=== PATIENT | male | born 1945 | race Caucasian/White ===

== ENCOUNTER 2016-08-28 07:58 | Day surgery (SDC) | payer MEDICARE, OTHER ==
[~2016-08-28] VITALS: Ht 188 cm; Wt 146.1 kg
[2016-08-28] VITALS (9 sets, daily range): BP systolic 119–157; BP diastolic 73–82; PULSE 47–52; RESP 12–17; O2SAT 94–96
[~2016-08-28 07:58] MED LIST: ASPI-973 PO; Ampicillin 2,000 mg/50 mL NS Minibag Plus IV SCH; CARV6.252 PO; DEXTROSE 5% IV SCH; GENTAMICIN IV SCH; HCTZ PO; HYDR-4003 PO; LIP40 PO; LOSA100T29 PO; MEXI200C PO; TAMS0.4C98 PO
[2016-08-28] MEDS ORDERED: Dexamethasone 4 mg/mL Inj ONE (07:59)
[2016-08-28] MEDS ORDERED: Neostigmine 1 mg/mL 10 mL Inj ONE (07:59)
[2016-08-28] MEDS ORDERED: Ondansetron 2 mg/mL 2 mL Inj ONE (07:59)
[2016-08-28] MEDS ORDERED: EPHEDrine/NS 5 mg/mL 5 mL Syringe ONE (07:59)
[2016-08-28] MEDS ORDERED: fentaNYL-PF 50 mCg/mL 2 mL Inj ONE (07:59)
[2016-08-28] MEDS ORDERED: Propofol 10,000 mCg/mL 20 mL Inj ONE (07:59)
[2016-08-28] MEDS ORDERED: Glycopyrrolate 0.2 MG/ML 1mL Inj ONE (07:59)
[2016-08-28] MEDS ORDERED: Phenylephrine/NS 100 mCg/mL 10 mL Syringe IVPUSH ONE (07:59)
[2016-08-28] MEDS ORDERED: Lactated Ringer's 1,000 ML IV ONE (08:54)
[2016-08-28] MEDS ORDERED: Lactated Ringer's 1,000 ML IV SCH (11:24)
[2016-08-28] MEDS ORDERED: Lactated Ringer's 500 ML IV PRN (11:24)
--- NOTE | 2016-08-28 11:24 | PCM.HPANE ---
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) Medications Blood Thinner: Aspirin Hypertension Medication: Yes Home Meds Incl Beta Janneth: Yes (carvedilol) Date Beta Janneth Taken: Aug 28, 2016 Time Beta Janneth Taken: 0700 Reported Medications Hydrocodone-Acetaminophen 5-325 mg 1 Each Tablet1 Tablet PO Q4H PRN For Pain Ref 0 08/22/16 Aspirin 81 Mg [id number] Mg PO DAILY Ref 0 08/22/16 Carvedilol 6.25 Mg Tablet6.25 Mg PO BID Ref 0 08/22/16 Losartan Potassium 100 Mg [id number] Mg PO DAILY 08/22/16 Tamsulosin (Flomax)0.4 Mg Capsule0.4 Mg PO BID Ref 0 08/22/16 Mexiletine HCl 200 Mg [id number] Mg PO Q8 Ref 0 08/22/16 Atorvastatin (Lipitor)40 Mg [id number] Mg PO DAILY Ref 0 08/22/16 [Hctz] No Conflict Check25 Mg PO DAILY 08/22/16 History HEENT History: Positive for:: Hearing Problem Denies:: Cataracts (SURG TO REMOVE) Dysphagia Glaucoma Sinus Problem Hx of Heart Problems?: Yes Cardiovascular History: Positive for:: Atrial Fibrillation Cardiac Surgery (HX STENT) Chest Pain Coronary Artery Disease Hypertension (HYPERLIPIDEMIA) Irregular Heartbeat (TACHY/MARIO SYNDROME) Denies:: Congestive Heart Failure Heart Murmur Pacemaker Thrombophlebitis Other Cardiac History: BARRETT placed 06/2011. Stopped ASA 7 days ago: Dr. Freeman just spoke today with Dr. Veloz about this, who stated that it is OK to proceed and restart ASA tomorrow. Hx of Respiratory Problem?: Yes Respiratory History: Positive for:: Use of C-PAP Machine Denies:: Asthma COPD Emphysema Oxygen Administration Tuberculosis Use of Inhalers / NEBS Hx Neurologic Problems?: Yes Neurological History: Positive for:: Dizziness (STATES OCCASIONAL VERTIGO) Denies:: CVA Dementia Headaches Multiple Sclerosis Parkinson's Disease Seizures TIA Hx of GI Problems?: Yes Gastrointestinal History: Positive for:: Gastroesphageal Reflux Denies:: Cirrhosis Gall Bladder Disease Gastrointestinal Bleeding Hepatitis Liver Disease Rectal Bleeding Hx of Problems?: Yes Genitourinary History: Positive for:: Kidney Stones Denies:: HX of Hemodialysis HX of Peritoneal Dialysis: No Male Hx: Positive for:: Testicular Surgery (VASECTOMY) Denies:: Prostate Problems Scrotal Mass Skin History: Denies:: History Skin Disorders? Pressure Ulcers Hx Musculoskeletal Problems?: Yes Musculoskeletal History: Positive for:: Joint Replacement (HX RTH) Osteoarthritis Denies:: Fibromyalgia Hx of Psycho/Social Problems?: No Psycho Social History: Denies:: Anxiety Bipolar Disorder Hx Depression Hx Surgeries?: Yes (RTH, KIDNEY STONES, KNEES, HERNIA, CARDIAC STENT) Other History: Positive for:: Hospitalization ([facility]) Denies:: Cancer Endocrine Disease Thyroid Disease History Blood Transfusions: Positive for:: Accept Blood Products? Hx Diabetes: No Hx Alcohol Use: Yes (ONCE A MONTH COUPLE BEERS)Hx Substance Use: NoHave You Smoked inLast 12 mo: No Stop/Bang S-Snoring: Do You Snore Loudly: Yes T-Tired: feel tired, fatigued: Yes O-Obsered: Observed not breath: Yes P-Blood Pressure: treated: Yes B- Body Mass Index > 35 kg/m2: Yes A- Age over 50: Yes N- Neck Large Circumference: Yes G- Gender Male: Yes LIS Total Score: 8 LIS Risk Assessment: High Risk, =/>3 Yes LIS Category 2: Yes Risk Assessment Category Category 1A: Patient has history of documented sleep apnea, and HAS NOT received any narcotic, sedative or anesthesia administration during this stay. Category 1B: Patient has history of documented sleep apnea, and HAS received any narcotic , sedative or anesthesia administration during this stay Category 2: Patient has SUSPECTED Obstructive Sleep Apnea, and HAS received any narcotic , sedative or anesthesia administration during this stay. Category 3: Patient has SUSPECTED Obstructive Sleep Apnea and HAS NOT received narcotic, sedative or anesthesia administration during this stay. Category 4: Outpatient in Procedural Areas with known sleep apnea or who screen positive for High Risk via the STOP/BANG questionnaire. Exam Exam Vital Signs Vital Signs Date Time Temp Pulse Resp B/P Pulse Ox O2 Delivery O2 Flow Rate FiO2 08/28/16 08:43 36.2 52 17 128/82 94 Room Air General Appearance: Alert, Oriented X3, Cooperative, No Acute Distress HEENT/AIRWAY: MP 2 Lungs: Clear to Auscultation, Normal Air Movement Heart: Normal S1 (bradycardic), Murmur (RUSB murmur with radiation to the carotids) Plan Impression Patient chart reviewed, patient interviewed and anesthestic plan with risks, benefits, and alternatives discussed, and informed consent obtained. NPO Status: 08/27@2230, water w am Rx ASA Physical Status: ASA3 Severe Disease Anesthetic Plan: GA Bene/Risks/Altern/Consents: Yes HP Complete Prior to Induction: Yes Nish Hadley MD Aug 28, 2016 08:53
[2016-08-28] MEDS ORDERED: Labetalol 5 mg/mL 4 mL Inj IV PRN (11:25)
[2016-08-28] MEDS ORDERED: MetoCLOpramide 5 mg/mL 2 mL Inj IVPUSH PRN (11:25)
[2016-08-28] MEDS ORDERED: HYDROmorphone 1 mg/mL Inj IVPUSH PRN (11:25)
[2016-08-28] MEDS ORDERED: EPHEDrine Sulfate 50 mg/mL Inj IVPUSH PRN (11:25)
[2016-08-28] MEDS ORDERED: Phenylephrine 10,000 mCg/mL Inj IVPUSH PRN (11:25)
[2016-08-28] MEDS ORDERED: fentaNYL-PF 50 mCg/mL 2 mL Inj IVPUSH PRN (11:25)
[2016-08-28] MEDS ORDERED: Ondansetron 2 mg/mL 2 mL Inj IVPUSH PRN (11:25)
[2016-08-28] MEDS ORDERED: Atropine 0.4 mg/mL Inj IVPUSH PRN (11:25)
[2016-08-28] MEDS ORDERED: Iopamidol-300 50 mL Inj IV ONE ×2 (11:26→13:11)
[2016-08-28] MEDS: Lactated Ringer's 1,000 ML IV SCH ×2 (12:47→16:05)
[2016-08-28] MEDS ORDERED: Belladonna Alk-Opium 60 mg Rectal Suppository RECTAL ONE ×2 (13:10→14:05)
--- NOTE | 2016-08-28 14:52 | PCM.SURGPO ---
Immediate Operative Note Date of Surgery: Aug 28, 2016 Pre Operative Diagnosis R hydroureter, L renal calculi, gross hematuria Post Operative Diagnosis R hydroureter, L renal calculi, gross hematuria, bladder lesion Procedure Cystoscopy, L ureteroscopy with Holmium laser lithotripsy of L renal calculi and basket extraction of L renal calculus fragments, R retrograde pyelogram, R ureteroscopy (diagnostic), B/L ureteral stent placement, and bladder biopsy Surgeon and [employer] Surgeon: Jabier Freeman MD Assistants: None Findings Cystoscopy revealed minimal bulbar urethral stricture (with cystoscope able to be passed through stricture without difficulty), moderate trilobar prostatic hypertrophy with mildly enlarged intravesical median prostatic lobe and prostatic varices, moderately trabeculated bladder, approx. 5mm nodular bladder lesion on mid trigone (near bladder neck), no bladder tumors or calculi, L ureteral orifice in normal position, and R ureteral orifice on R superolateral bladder wall. R retrograde pyelogram revealed moderate R hydroureteronephrosis down to R distal ureter and no filling defects in R renal collecting system or R ureter. R semi-rigid ureteroscopy revealed normal R distal and mid ureter with no calculi, lesions, or tumors. R ureteral stent was placed. L semi- rigid ureteroscopy revealed no calculi in L distal or mid ureter. A 12/14F x 35cm ureteral access sheath was placed in L ureter. L flexible ureteroscopy revealed L renal calculi x 2 (approx. 14-15mm L renal pelvis and approx. 2-3mm L mid pole calculi). Holmium laser lithotripsy of L renal calculi and basket extraction of L renal calculus fragments were performed. L ureteral stent was placed. Bladder lesion was resected using cold cup biopsy forceps. Fulguration was performed using Bugbee electrocautery. Complications There were no periprocedural complications identified. Surgical Specimen Removed: Yes Specimen sent to Pathology: Yes Surgical Specimen description: Trigone bladder lesion sent to pathology, L renal calculus fragments sent to lab for stone analysis Anesthetic Administered: GA Grafts, Implants: Other (24cm x 5F R ureteral JJ stent (no string), 26cm x 5F L ureteral JJ stent (no string)) Output, Estimated Blood Loss: <5 Blood Admin during surgery: No Additional information Patient to return to see me in 6-8 days for cystoscopy, B/L ureteral stent removal, and post-op visit, with KUB prior to appt. Jabier Freeman MD Aug 28, 2016 14:52
--- NOTE | 2016-08-28 15:13 | PCM.DISURG ---
Surgical Discharge Instruction Date of Service Aug 28, 2016 Dates of Hospitalization Date of Hospital Admission Aug 28, 2016 Providers Admitting Physician: Jabier Freeman MD Primary Care Physician: Armani Pereyra MD Attending Physician: Jabier Freeman MD Discharge Diagnosis Discharge Diagnosis R hydroureter, L renal calculi, gross hematuria, bladder lesion Post Operative diagnosis R hydroureter, L renal calculi, gross hematuria, bladder lesion Diet Discharge Diet: No restrictions, Other (Drink at least 10-12 8oz. glasses (3 liters) of fluids per day) Activity Discharge Activity-General: No driving while taking narcotic, Other (No strenuous exercise/activity or moderate or heavy lifting (>10 lbs.) for 1 week and as long as there is blood in the urine) Dressing and Incisional Care Hygiene: May shower Follow Up Plan Follow-up Provider (F9): Jabier Freeman MD Follow-up appointment: Days (6-8 days for cystoscopy, B/L ureteral stent removal, and post-op visit, with KUB prior to appt.) Call your provider for: Fever, Chills, Vomiting, Other (Pain uncontrolled by pain medications, inability to urinate) Jabier Freeman MD Aug 28, 2016 15:13
--- NOTE | 2016-08-28 15:13 | PCM.ANEP1 ---
Post Anesthesia Phase 1 PACU Phase 1 Assessment Date of Service: Aug 28, 2016 Vital Signs Vital Signs Date Time Temp Pulse Resp B/P Pulse Ox O2 Delivery O2 Flow Rate FiO2 08/28/16 14:50 47 14 157/79 96 Room Air 08/28/16 14:45 49 14 136/76 94 Room Air 08/28/16 14:40 36.4 49 12 119/74 95 Room Air 08/28/16 14:35 49 14 138/80 95 08/28/16 14:30 49 13 130/78 95 Room Air 08/28/16 14:25 48 12 132/79 95 Room Air 08/28/16 14:20 36.4 51 15 124/73 96 Simple Mask 8 08/28/16 08:43 36.2 52 17 128/82 94 Room Air Anesthetic Administered: GA Level of Alertness: Awake, talking GUILLORY's with Equal Strength: Yes Pain: No Nausea or Vomiting: No Oxygen Delivery: Simple Mask Lungs: Clear to Auscultation, Normal Air Movement Nish Hadley MD Aug 28, 2016 15:13
[2016-08-28] MEDS ORDERED: HYDROcodone-APAP 5-325 mg Tablet PO PRN (15:15)
--- NOTE | 2016-08-28 15:18 | PCM.ANEP2 ---
Post Anesthesia Evaluation ASA/CMS Post Anesthesia VS in Patient's Normal Range?: Yes Resp Stable; Airway Patent?: Yes CV Function & Hydration Stable: Yes Mental Status Recovered?: Yes Pain control Satisfactory?: Yes N/V Control Satisfactory?: Yes Nish Hadley MD Aug 28, 2016 15:18
--- NOTE | 2016-08-28 15:22 | DRSVH ---
PROCEDURE: X-RAY RETROGRADE UROGRAPHY INDICATIONS: STENT RIGHT KIDNEY TECHNIQUE: 23 intra-operative images acquired by the Urology service. COMPARISON: [facility], CT, CT ABD PELVIS W&WO CON IVP, 07/30/2016, 8:22. FINDINGS: Right renal collecting system is prominent. No definite intraluminal filling defects are seen. The distal right ureter where visualized is dilated proximal to the ureterovesical junction. No definite intraluminal filling defects are seen. No extravasation. Ureteral stent was placed. IMPRESSION: 1. Prominence of the right renal collecting system. 2. Focal dilatation of the distal right ureter proximal to the ureterovesical junction. 3. Ureteral stent placement. Dictated by: Wisam DE LA ROSA Interpreted: Sharee Nichols MD on 08/28/2016 at 15:21 Transcribed by: MIGUEL ANGEL on 08/28/2016 at 15:22 Approved by: Sharee Nichols MD, PhD on 08/28/2016 at 16:49
[2016-08-28] MEDS ORDERED: Phenazopyridine 97.5 mg Tablet ONE (15:56)
--- NOTE | 2016-08-31 06:45 | OP ---
[address] [address] OPERATIVE REPORT PATIENT: SHANTI JONES : 1945 MR#: [id number] ADMIT: 08/28/2016 JOB ID: [id number] DATE OF SURGERY: 08/28/2016 PREOPERATIVE DIAGNOSIS(ES): 1. Right hydroureter. 2. Left renal calculi. 3. Gross hematuria. POSTOPERATIVE DIAGNOSIS(ES): 1. Right hydroureter. 2. Left renal calculi. 3. Gross hematuria. 4. Bladder lesion. PROCEDURE: 1. Cystoscopy. 2. Left ureteroscopy with holmium laser lithotripsy of left renal calculi and basket extraction of left renal calculus fragments. 3. Right retrograde pyelogram. 4. Right ureteroscopy (diagnostic). 5. Bilateral ureteral stent placement 6. Bladder biopsy. SURGEON: Jabier Freeman MD GLAUCOMA SPECIALIST: None. ANESTHESIA: General. ESTIMATED BLOOD LOSS: Less than 5 mL. SPECIMENS: Trigone bladder lesion sent to pathology, left renal calculus fragments sent to the lab for stone analysis. DRAINS: 24 cm x 5-[place] right ureteral double-J stent, 26 cm x 5-[place] left ureteral double-J stent. COMPLICATIONS: None. CONDITION: Stable. FINDINGS: Cystoscopy revealed minimal bulbar urethral stricture (with the cystoscope able to be passed through stricture without difficulty), moderate trilobar prostatic hypertrophy with a mildly enlarged intravesical median prostatic lobe and prostatic varices, moderately trabeculated bladder, approximately 5 mm nodular bladder lesion on the mid trigone (near bladder neck), no bladder tumors or calculi, left ureteral orifice in normal position, and right ureteral orifice on right superolateral bladder wall. Right retrograde pyelogram revealed moderate right hydroureteronephrosis down to the right distal ureter and no filling defects in the right renal collecting system or right ureter. Right semi-rigid ureteroscopy revealed normal right distal and mid ureter with no calculi, lesions, or tumors. Right ureteral stent was placed. Left semi-rigid ureteroscopy revealed no calculi in the left distal or mid ureter. A 12/14-[place] x 35 cm ureteral access sheath was placed in the left ureter. Left flexible ureteroscopy revealed left renal calculi x2 (approximately 14-15 mm left renal pelvis and approximately 2-3 mm left mid pole renal calculi). Holmium laser lithotripsy of left renal calculi and basket extraction of left renal calculus fragments were performed. Left ureteral stent was placed. The bladder lesion was resected using cold cup biopsy forceps. Fulguration was performed using Bugbee electrocautery. INDICATIONS: The patient is a 70-year-old male with gross hematuria, with CT scan showing left renal calculi, mild left hydronephrosis, moderate right distal hydroureter, and no ureteral calculi. The patient now presents for cystoscopy, right retrograde pyelogram, right ureteroscopy, left ureteroscopy with holmium laser lithotripsy and basket extraction of calculus fragments, left ureteral stent placement, and possible right ureteral stent placement. DESCRIPTION OF PROCEDURE: The patient was brought to the operating room and placed supine on the operating room table. The patient was given ampicillin and gentamicin IV antibiotics. Sequential compression device boots were placed. General anesthesia was administered. The patient was brought down into dorsal lithotomy position. The patient was prepped and draped in standard sterile surgical fashion. A 22-[place] rigid cystoscope was placed into the distal urethra without difficulty. Cystoscopy revealed minimal bulbar urethral stricture (with cystoscope able to be passed through the stricture without difficulty), moderate trilobar prostatic hypertrophy with a mildly enlarged intravesical median prostatic lobe and prostatic varices, moderately trabeculated bladder, approximately 5 mm nodular bladder lesion on the mid trigone (near the bladder neck), no bladder tumors or calculi, left ureteral orifice in normal position, and right ureteral orifice on right superolateral bladder wall. Of note, difficulty was initially encountered in locating and visualizing the right ureteral orifice. However, the right ureteral orifice was able to be identified on the right superolateral bladder wall. An 8-[place] cone tip catheter was placed into the right ureteral orifice and contrast was instilled into the right ureter and right renal collecting system to perform a right retrograde pyelogram, which revealed moderate right hydroureteronephrosis down to the right distal ureter and no filling defects in the right renal collecting system or right ureter. The cone-tip catheter was removed. An angle tip Ultratrack guidewire was passed into the right ureteral orifice and passed up the right ureter into the right renal pelvis. Cystoscope was removed from the patient. The guidewire was secured to the drape with a Berhta clamp as a safety wire. A semi-rigid ureteroscope was passed through the urethra and bladder and into the right ureteral orifice with assistance of a PTFE guidewire. Right semi-rigid ureteroscopy revealed normal right distal and mid ureter with no calculi, lesions, or tumors seen. The semi-rigid ureteroscope was removed from the patient. The rigid cystoscope was passed over the safety guidewire through the urethra and into the bladder. A 24 cm x 5-[place] ureteral double J stent, with the stent string removed prior to stent placement, was passed over the guidewire through the cystoscope and passed up the right ureter and placed so that the proximal pigtail was located in the right renal pelvis and the distal pigtail was located in the bladder. The guidewire was removed. Correct positioning of the stent was confirmed both fluoroscopically and under direct visualization using the cystoscope. Good efflux of contrast could be seen draining from the distal end of the stent into the bladder, further confirming correct stent positioning. Thus, a right ureteral stent was placed. Then, the angle tip Ultratrack guidewire was passed into the left ureteral orifice and passed up the left ureter into the left renal pelvis. The rigid cystoscope was removed from the patient. The guidewire was secured to the drape with a Bertha clamp as a safety wire. The semi-rigid ureteroscope was passed through the urethra and bladder and into the left ureteral orifice with assistance of the PTFE guidewire. Left semi-rigid ureteroscopy revealed no calculi in the left distal or mid ureter. The PTFE guidewire was advanced up the left ureter into the left renal pelvis. The semi-rigid ureteroscope was removed from the patient. A 12/14-[place] x 35 cm ureteral access sheath was passed over the PTFE guidewire through the urethra and bladder and into the left ureter. The inner portion of the sheath and PTFE guidewire were removed from the patient. A flexible ureteroscope was passed through the ureteral access sheath and the left flexible ureteroscopy revealed normal left proximal ureter and left renal calculi x 2 (approximately 14-15 mm left renal pelvis and approximately 2-3 mm left mid pole renal calculi). Holmium laser lithotripsy of both left renal calculi was performed using a 273 micron holmium laser fiber, fragmenting the calculi into small fragments. Basket extraction of all significant larger than 2 mm left renal calculus fragments was performed using a 2.2-[place] NCircle Nitinol basket and calculus fragments were sent to the laboratory for stone analysis. The left renal pelvis and all calyces were visualized. No significant larger than 2 mm calculi fragments were seen. Of note, the left renal collecting system was irrigated using power irrigation with normal saline to help irrigate out fragments. A small amount of contrast was instilled into the left renal collecting system to illuminate the left renal collecting system to aid in stent placement. The flexible ureteroscope and ureteral access sheath were backed down the left ureter and the entire left ureter was visualized. No significant larger than 2 mm calculi fragments were seen. The flexible ureteroscope and ureteral access sheath were removed from the patient. The rigid cystoscope was passed over the safety guidewire through the urethra and into the bladder. A 26 cm x 5-[place] ureteral double J stent, with the stent string removed prior to stent placement, was passed over the guidewire through the cystoscope and passed up the left ureter and placed so that the proximal pigtail was located in the left renal pelvis and the distal pigtail was located in the bladder. The guidewire was removed. Correct positioning of both left and right ureteral stents was confirmed both fluoroscopically and under direct visualization using the cystoscope. Good efflux of contrast could be seen draining from the distal end of both left and right ureteral stents into the bladder, further confirming correct stent positioning. Thus, bilateral ureteral stents were placed. Then, the trigone bladder lesion was resected in its entirety using cold cup biopsy forceps, and the trigone bladder lesion was sent to pathology for permanent specimen. The base of the bladder biopsied area including normal surrounding bladder mucosa was fulgurated using Bugbee electrocautery. Excellent hemostasis was achieved. No evidence for bladder perforation was seen. The bladder was drained via the cystoscope. The cystoscope was removed from the patient. Skin was cleaned and dried. The patient was placed into the supine position. The patient was awakened from general anesthesia and transferred to recovery room in stable condition. The patient tolerated the procedure well. PLAN: Plan is for the patient to return to see me in the office in 6-8 days for cystoscopy, bilateral ureteral stent removal, and postop visit, with a KUB prior to the appointment. NICKI
--- NOTE | 2016-09-02 14:26 | PATH ---
SURGICAL PATHOLOGY Attending Physician:Jabier Freeman MD CASE STATUS: Signed Out PATIENT NAME: SHANTI JONES PID: [id number] : 1945 DATE COLLECTED:08/28/2016 23:38 SPECIMEN: Bladder, Biopsy CLINICAL HISTORY: LEFT KIDNEY STONE, RIGHT HYDROURETER 1). TRIGONE BLADDER LESION FINAL DIAGNOSIS: 1.TRIGONE, BLADDER BIOPSY: MILDLY CONGESTED BLOOD VESSELS WITHIN THE LAMINA PROPRIA. NO EVIDENCE OF MALIGNANCY OR DYSPLASIA. ICD10 CODE R31.9 GROSS DESCRIPTION: Received in formalin, labeled with the patient' s name and "trigone bladder lesion", is one fragment of hall-bullock tissue measuring 0.2 x 0.2 x 0.1 cm. The fragment is totally submitted in one cassette. ([id number]) MICRO DESCRIPTION: See diagnosis. ICD-9 CODES: CPT CODES: 1: 10535 Electronically Signed Out Adebayo Chawla MD [facility] Pathology [facility] [address], [place] [address] Technical component performed at [facility], [facility] [address], [place], [address]
[2016-09-05 10:11] LABS: Stone Color Brown (.)
== END 2016-08-28 23:59 | disposition home or self-care (01) ==
LOC: SAS 07:58
PROVIDERS: ATTEND Urology
DX: N20.0 Calculus of kidney (principal); N13.30 Unspecified hydronephrosis; R31.0 Gross hematuria; N32.9 Bladder disorder, unspecified; N40.1 Benign prostatic hyperplasia with lower urinary tract symptoms; R33.9 Retention of urine, unspecified; R39.15 Urgency of urination; I48.91 Unspecified atrial fibrillation; I25.10 Atherosclerotic heart disease of native coronary artery without angina pectoris; E78.5 Hyperlipidemia, unspecified; I10 Essential (primary) hypertension; K21.9 Gastro-esophageal reflux disease without esophagitis; G47.30 Sleep apnea, unspecified; I49.5 Sick sinus syndrome; F17.220 Nicotine dependence, chewing tobacco, uncomplicated; E66.9 Obesity, unspecified; Z68.41 Body mass index [BMI] 40.0-44.9, adult; Z79.82 Long term (current) use of aspirin
CPT/HCPCS: 52356; 74420; 82360; C2617; J0290; J1100; J2370; J2405; J2710; J3010; J7120; Q9967